=== PATIENT | female | born 1990 | race Caucasian/White ===

== ENCOUNTER 2018-11-16 13:38 | Inpatient (IN) | payer MEDICAID ==
[~2018-11-16] VITALS: Ht 175.3 cm; Wt 69.6 kg
[2018-11-16] MEDS ORDERED: IV NS 0.9% 1,000 ML BAG IV ONE (14:30)
[2018-11-16 14:38] LABS: APPEARANCE,URINE Turbid (CLEAR); BILIRUBIN,URINE Negative (NEGATIVE); BLOOD, URINE Moderate Ery/uL (NEGATIVE); COLOR,URINE Yellow (YELLOW); KETONES,URINE 15 (NEGATIVE); LEUKOCYTE ESTERASE ,URINE Large (NEGATIVE); NITRITE, URINE Positive (NEGATIVE); PROTEIN,URINE 100 mg/dl (NEGATIVE); UGLUCOSE Negative (NEGATIVE); UROBILINOGEN,URINE 0.2 EU/dL (0.2)
[2018-11-16 14:41] LABS: BASOPHILS % (AUTO) 0.2 % (0.0-2.0); EOSINOPHILS % (AUTO) 1.3 % (0.0-6.0); HEMATOCRIT 46 % (33-45); LYMPHOCYTES # (AUTO) 1.2 /CMM (0.8-4.8); LYMPHOCYTES % (AUTO) 8.7 % (20.0-44.0); MEAN CORPUSCULAR HGB CONC 33 g/dl (31.0-36.0); MEAN CORPUSCULAR VOLUME 86 fL (82-100); MONOCYTES # (AUTO) 0.5 /CMM (0.1-1.30); MONOCYTES % (AUTO) 3.4 % (2.0-12.0); NEUTROPHILS # (AUTO) 11.5 /CMM (1.8-8.9); NEUTROPHILS % (AUTO) 86.4 % (43.0-81.0); PLATELET COUNT (AUTO) 411 /CMM (150-450); WHITE BLOOD COUNT (AUTO) 13.4 K/uL (4.3-11.0)
[2018-11-16 14:50] LABS: WBC,URINE TOO NUMEROUS TO COUN /HPF (0-3)
[2018-11-16 14:52] LABS: BACTERIA,URINE Many /HPF (None Seen); SQUAMOUS EPITHELIAL CELL,UR Moderate /HPF (None Seen)
[2018-11-16 14:56] LABS: CALCIUM, SERUM 9.8 mg/dL (8.5-10.1); CARBON DIOXIDE 27 mmol/L (21-32); CHLORIDE 98 mmol/L (98-107); GLUCOSE 141 mg/dL (74-106); POTASSIUM 4.1 mmol/L (3.5-5.1); SODIUM SERUM 134 mmol/L (136-145); UREA NITROGEN, BLOOD 19 mg/dL (7-18)
[2018-11-16 15:08] LABS: ALANINE AMINOTRANSFERASE 19 U/L (12-78); ALKALINE PHOSPHATASE 108 U/L (46-116); ASPARTATE AMINOTRANSFERASE 22 U/L (15-37); BILIRUBIN,DIRECT 0.1 mg/dL (0.0-0.2); BILIRUBIN,TOTAL 0.5 mg/dL (0.2-1.0); LIPASE 109 U/L (73-393)
[2018-11-16] MEDS ORDERED: CEFTRIAXONE 1GM BAG (ER ONLY) 50 ML IV ONE (15:26)
[2018-11-16] MEDS ORDERED: CEFTRIAXONE 1GM BAG (ER ONLY) 1 GM/50 ML PIGGYBACK IV ONE (15:30)
--- NOTE | 2018-11-16 15:39 | NUR ---
CALLED NURSING SUP. FOR MS BED
[2018-11-16] MEDS ORDERED: HYDROCODONE/APAP 5/325MG 1 EACH TABLET PO ONE (16:00)
[2018-11-16] MEDS ORDERED: HYDROCODONE/APAP 5/325MG 1 EACH TABLET ONE ×2 (16:01→17:58)
--- NOTE | 2018-11-16 16:12 | NUR ---
RECEIVED CALL FROM LIZZY CALDERON TRACTOR DRILL OPERATOR, , GAVE HER PT INFO AND SHE INFORMED ME SHE IS GOING TO GIVE IT TO HER HOSPITALIST AND WE WILL HEAR FROM THE HOSPITALIST SOON.
[2018-11-16] MEDS ORDERED: DIVA-78 PO (16:57)
[2018-11-16] MEDS ORDERED: TRAZ-213 PO (16:57)
[2018-11-16] MEDS ORDERED: VENL75CA62 PO (16:57)
[2018-11-16] MEDS ORDERED: RISP0.253 PO (16:57)
--- NOTE | 2018-11-16 17:14 | NUR ---
Pt not accepted to [facility]. Pt will be admitted inpatient here under Dr. Cadena.
--- NOTE | 2018-11-16 17:15 | NUR ---
CALLED SEAN REFFERED TO [phone] CELL [phone]
--- NOTE | 2018-11-16 17:25 | NUR ---
DR. CARLINE SWEENEY SPECIALIST - UROLOGY [phone]
[2018-11-16] MEDS ORDERED: HYDROCODONE/APAP 5/325MG 1 EACH TABLET PO STA (18:07)
--- NOTE | 2018-11-16 18:12 | NUR ---
report given to Naresh for amilcar.
--- NOTE | 2018-11-16 19:16 | NUR ---
wheeled patient via rney going to room 307-1. in no apparent distress noted.
[2018-11-16 20:00] VITALS: BP_SYST 111; BP_SYST 116; BP_DIAS 63
[2018-11-16] MEDS ORDERED: ONDANSETRON HCL/PF 4 MG/2 ML VIAL IV PRN (20:00)
[2018-11-16] MEDS ORDERED: ACETAMINOPHEN 325 MG TABLET PO PRN (20:00)
[2018-11-16] MEDS ORDERED: IV NS 0.9% 1,000 ML BAG IV PRN ×2 (20:00→21:30)
--- NOTE | 2018-11-16 20:00 | NUR ---
MS SOLAR DEVELOPMENT ENGINEER INITIAL NOTES ADMIT PT FROM ER VIA [facility] ACCOMPANIED BY ER NURSE AND HER FRIEND. DX OF UTI . PT IS ALERT ORIENTED X4 AMBULATORY. PT ASKING FOR SOME FOOD TO EAT . GOT ORDERED REGULAR DIET , OFFERED EGG SANDWICH AND CRANBERRY JUICE. ASSESSMENT DONE AND RECORDED. ORIENTED HOW TO USED THE CALL LIGHTS SYSTEM. KEPT HER WARM AND COMFORTABLE AT ALL TIMES. PLACE CALL LIGHT AT REACH WILL CONTINUE TO MONITOR.
[2018-11-16] MEDS: PIPERACILLIN /TAZOBACTAM 3.375 G in IV D5W 50 ML IV SCH (21:00)
[2018-11-16] MEDS ORDERED: PIPERACILLIN /TAZOBACTAM 3.375 G VIAL IV ONE (21:02)
[2018-11-16] MEDS ORDERED: IV NS 0.9% 1,000 ML IV PRN (21:30)
[2018-11-16] MEDS: HYDROCODONE/APAP 5/325MG 1 EACH TABLET PO PRN (21:42)
--- NOTE | 2018-11-16 21:45 | NUR ---
MS POINTING MACHINE OPERATOR NOTES ROUTINE MEDS GIVEN WELL PAIN MEDICATION NORCO TABLET FOR HER LOWER BACK PAIN. WILL CONTINUE MONITORING. IVF NS AT 100ML/HR STARTED TO INFUSED ORDERED.
--- NOTE | 2018-11-16 21:59 | NUR ---
MS SOURAV NOTES C/O NAUSEA , ZOFRAN ADMINISTERED BY ANOTHER NURSE TEE IVP ORDERED . EDUCATE PT REGARDING POSSIBLE SIDE EFFECT AND PT UNDERSTOOD WELL. WILL CONTINUE MONITORING.
[2018-11-16] MEDS ORDERED: TRAZODONE 50 MG TABLET PO SCH (22:00)
--- NOTE | 2018-11-16 23:00 | NUR ---
NET APPLICATIONS DEVELOPER NOTES PT CHECKED TO FIND OUT HOW HER PAIN, SEEN RESTING AT THIS TIME WITH EYES CLOSED, BREATHING EVEN AND UNLABORED. SEEMS COMFORTABLE AT THIS TIME. WILL CONTINUE MONITORING.
--- NOTE | 2018-11-17 | NUR ---
MS SOURAV NOTES PT SLEEPING COMFORTABLY IN BED WITHOUT ANY ACUTE DISTRESS NOTED. WILL CONTINUE MONITORING. PLACE CALL LIGHT AT REACH.
--- NOTE | 2018-11-17 02:22 | NUR ---
MS HIGH VALUE ASSOCIATE NOTES PT REMAINS SLEEPING COMFORTABLY IN BED . WILL CONTINUE MONITORING.
--- NOTE | 2018-11-17 04:00 | NUR ---
MS SENIOR SYSTEMS SOFTWARE ENGINEER NOTES PT REMAIN SLEEPING AT THIS TIME. BREATHING EVEN AND UNLABORED, NOT IN ANY DISTRESS NOTED. IVF STILL INFUSING. WILL CONTINUE MONITORING.PLACE CALL LIGHT AT REACH.
[2018-11-17] MEDS ORDERED: PIPERACILLIN /TAZOBACTAM 3.375 G VIAL IV ONE (05:19)
[2018-11-17] MEDS: PIPERACILLIN /TAZOBACTAM 3.375 G in IV D5W 50 ML IV SCH (05:46)
[2018-11-17] MEDS: HYDROCODONE/APAP 5/325MG 1 EACH TABLET PO PRN (05:51)
--- NOTE | 2018-11-17 05:55 | NUR ---
MS OTR REFRIGERATED CDL TRUCK DRIVER NOTES PT WOKE UP AND USED THE RESTROOM THEN COMPLAINING OF LOWER BACK PAIN, 03/05 , NORCO TABLET GIVEN ORDERED. NO N/V NOTED AT THIS TIME. ZOSYN INFUSING AT THIS TIME. NO ADVERSE REACTION NOTED. WILL CONTINUE MONITORING. PLACE CALL LIGHT AT REACH.
--- NOTE | 2018-11-17 07:00 | NUR ---
MS CARETAKER CLOSING NOTES PT RESTING AT THIS TIME WITH EYES CLOSED BUT AROUSES TO TOUCH, RESPIRATION EVEN AND UNLABORED, IVF NS AT 100ML/HR STILL INFUSING ON HER LEFT AC. NO SIGNS OF REDNESS NOTED. STABLE TEE THE NIGHT AND SLEPT WELL. ALL DUE MEDS GIVEN AND ALL NEEDS MET. KEPT HER WARM AND COMFORTABLE AT ALL TIMES. ON SEMI FOWLERS POSITION WITH SIDE RAILS X2 UP AND BED IN LOW AND LOCK IN POSITION. PLACE CALL LIGHT AT REACH. ENDORSE TO AM NURSE FOR CONTINUITY OF CARE.
[2018-11-17] MEDS ORDERED: LEVO500T75 PO (07:30)
[2018-11-17 08:00] VITALS: BP 114/68
--- NOTE | 2018-11-17 08:00 | NUR ---
rn notes received patient in the bed a/o x4, patient refused pain, no acute respiratory distress, refused v/s to be taken. Seen by Dr. Cadena, and Dr Cole urologist. Patient stable, going to discharge home .
[2018-11-17] MEDS ORDERED: VENLAFAXINE 37.5 MG TABLET PO SCH (09:00)
[2018-11-17] MEDS ORDERED: DIVALPROEX SODIUM 500 MG TABLET.DR PO SCH (09:00)
[2018-11-17] MEDS ORDERED: PIPERACILLIN /TAZOBACTAM 3.375 G in IV D5W 100 ML IV SCH (12:00)
--- NOTE | 2018-11-17 14:06 | NUR ---
SIGNAL TIMER NOTES Patient discharge at this time, going home. Patient A/O x 4 in stable condition and refuses pain. VS stable with no acute distress. Ambulatory. Med reconciliation and discharge orders reviewed and explained to Patient. Patient verbalized understanding. Prescription handed to Patient. Patient will follow primary MD. All belongings with Patient. Escorted Patient to the lobby for safety. Patient picked up by Celestine ballard .
--- NOTE | 2018-11-22 15:18 | NUR ---
DISCHARGE F/U CALL NOTES CALLED [facility] 3X AND LEFT MESSAGE IN VM.PT'S GRANDMOTHER,PAVEL WANTS [facility] TO BE CALLED INSTEAD. .
== END 2018-11-17 14:30 | disposition home or self-care (01) | DRG 463 ==
LOC: ER 13:44 → MED 17:45
PROVIDERS: ADMIT Internal Medicine; ATTEND Internal Medicine
DX: N39.0 Urinary tract infection, site not specified (principal); N13.1 Hydronephrosis with ureteral stricture, not elsewhere classified; F17.200 Nicotine dependence, unspecified, uncomplicated; N20.0 Calculus of kidney; F41.9 Anxiety disorder, unspecified; F32.9 Major depressive disorder, single episode, unspecified; F19.10 Other psychoactive substance abuse, uncomplicated; Z87.442 Personal history of urinary calculi
CPT/HCPCS: 36415; 71045-TC; 76770-TC; 80048-TC; 80076-TC; 80305; 81000-TC; 83605-TC; 83690-TC; 84484-TC; 84703-TC; 85025-TC; 85730-TC; 87040-TC; 87081-TC; 87086-TC; 87186-TC; G0378; G0480; J0696; J2405; J2543; J7030; J7060